=== PATIENT | female | born 1965 | race Caucasian/White ===

== ENCOUNTER 2021-12-28 18:18 | Emergency (ER) | payer OTHER ==
[~2021-12-28] VITALS: Ht 162.6 cm; Wt 83.9 kg
[2021-12-28 18:54] VITALS: BP_SYST 134
--- NOTE | 2021-12-28 23:15 | NUR ---
PATIENT BROUGHT TO [facility]ED [facility], REPORT GIVEN TO DONATO BROOKS.
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
--- NOTE | 2021-12-29 03:06 | NUR ---
DR. WILSON ASSESSING AND SPEAKING TO PATIENT AT THIS TIME.
[2021-12-29] MEDS ORDERED: AMOXICILLIN/CLAVULANATE POTASSIUM 500 MG TABLET PO ONE (03:30)
[2021-12-29] MEDS ORDERED: IBUPROFEN 600 MG TABLET PO ONE (03:30)
[2021-12-29] MEDS ORDERED: DIPHTH,PERTUSS(ACELL),TET VAC 0.5 ML VIAL (Tdap) I.M. ONE (03:30)
[2021-12-29] MEDS ORDERED: AMOX1TAB14 PO (03:40)
[2021-12-29] MEDS ORDERED: IBUP-1969 PO (03:40)
--- NOTE | 2021-12-29 04:12 | NUR ---
Patient given written and verbal discharge instructions and verbalizes understanding. ER MD discussed with patient the results and treatment provided. Patient in stable condition. ID arm band removed. Rx of Amox/Ibuprofen sent to pharmacy of choice. Patient educated on pain management and to follow up with PMD. Pain Scale 1/10 Opportunity for questions provided and answered. Medication side effect fact sheet provided.
[2021-12-29 04:13] VITALS: BP_SYST 127
== END 2021-12-29 04:11 | disposition home or self-care (01) ==
LOC: SED 18:18
DX: S31.815A Open bite of right buttock, initial encounter (principal); Z79.899 Other long term (current) drug therapy; W54.0XXA Bitten by dog, initial encounter; Y93.89 Activity, other specified; Y92.89 Other specified places as the place of occurrence of the external cause; Y99.8 Other external cause status
CPT/HCPCS: 90715; 99283